=== PATIENT | female | born 2000 | race Two or more races ===

== ENCOUNTER 2025-05-10 04:42 | Emergency (ER) | payer BC, SELFPAY ==
[2025-05-10 04:43] VITALS: BMI 29.2
[2025-05-10 04:49] VITALS: BP 111/77; PULSE 95; RESP 18; TEMP 36.6; O2SAT 100
--- NOTE | 2025-05-10 05:04 | XR_ITS ---
Examination: Complete OB ultrasound, less than 14 weeks, transabdominal Date and time of exam: May 10, 2025, 0522 hrs. Indications: Nausea vomiting and vaginal bleeding today. Technique: Obstetrical ultrasound images less than 14 weeks performed via transabdominal imaging Findings: A normal shaped single intrauterine gestation is present in the uterus. CRL 3.11 cm corresponds to 10 week 0 day gestational age Cardiac motion 169 BPM. Right ovary 3.6 cm arterial flow, 21 mm corpus luteum cyst. Left ovary 3.0 cm arterial flow Ultrasonographic survey of visible and placental structures unremarkable. Amniotic fluid volume appears appropriate for this estimated gestational age. Impression: Viable intrauterine gestation 10 weeks 0 days.
--- NOTE | 2025-05-10 05:04 | PD.EDRME ---
Rapid Medical Screening Exam RME Arrival date/time: 05/10/25 04:42 This is a case of 24-year-old female with no medical history came in in the emergency room due to vomiting and nausea for 3 days patient is 10 weeks 1 para 0 patient denies any abdominal pain or vaginal bleeding Chief Complaint: Nausea/Vomiting/Diarrhea Time Seen by Provider: 05/10/25 05:03 Vital signs: Vital Signs Temperature 98 F 05/10/25 04:49 Pulse Rate 95 05/10/25 04:49 Respiratory Rate 18 05/10/25 04:49 Blood Pressure 111/77 05/10/25 04:49 Pulse Oximetry (%) 100 05/10/25 04:49 Oxygen Delivery Method Room Air 05/10/25 04:49
[2025-05-10 05:14] LABS: Collection Type, Urine Voided
[2025-05-10 05:22] LABS: Bacteria,Urine Rare; Bilirubin,Urine 1+ (Negative); Blood,Urine Trace (Negative); Clarity,Urine Turbid (Clear/Hazy); Color,Urine Drk-Yellow (Lt Yel-Yel); Glucose, Urine Negative (Negative); Ketones,Urine 4+ (Negative); Leukocyte Esterase,Urine Positive (Negative); Nitrite,Urine Negative (Negative); PH,Urine 6.0 (5.0-7.0); Protein,Urine 1+ (Neg - Trace); RBC,Urine 2 /hpf (0-3); Specific Gravity,Urine 1.028 (1.001-1.035); Squamous Epithelial Cell,Urine 17 /hpf (0-5); Urobilinogen,Urine 4.0 mg/dL (0.0-1.0); WBC,Urine 7 /hpf (0-5)
[2025-05-10 06:01] LABS: Basophils # (Auto) 0.0 Thou/mm3 (0.0-0.2); Basophils % (Auto) 0 % (0-2.5); Eosinophils # (Auto) 0.0 Thou/mm3 (0.0-0.5); Eosinophils % (Auto) 0 % (0-10); Hematocrit 40.5 % (36.0-46.0); Hemoglobin 14.4 g/dL (12.0-16.0); Immature Granulocytes Auto 0.03 Thou/mm3 (0.00-0.00); Lymphocytes # (Auto) 1.6 Thou/mm3 (1.0-4.8); Lymphocytes % (Auto) 14 % (10-50); Mean Corpuscular HGB Conc 35.6 g/dl (31.0-37.0); Mean Corpuscular Hemoglobin 30.0 pg (25.0-35.0); Mean Corpuscular Volume 84 fL (80-100); Monocytes # (Auto) 0.5 Thou/mm3 (0.0-0.8); Monocytes % (Auto) 5 % (0-12); Neutrophils # (Auto) 8.9 Thou/mm3 (1.8-7.7); Neutrophils % (Auto) 80 % (37-80); Nucleated Red Blood Cell # 0.00 Thou/mm3 (0.00-0.00); Nucleated Red Blood Cell % 0 /100 WBC (0); Platelet Count 346 Thou/mm3 (140-440); RDW Standard Deviation 39.3 fL (36.4-46.3); Red Blood Count 4.80 Miln/mm3 (4.00-5.20); White Blood Count 11.1 Thou/mm3 (3.6-11.0)
--- NOTE | 2025-05-10 06:02 | PRELIM_ITS ---
Obstetric ultrasound (transabdominal ) with Doppler and wave Doppler spectral analysis. May 10, 2025 0522 hours Clinical history: Vaginal bleeding. Technique: Real-time ultrasound was performed using Duplex scanning including arterial inflow, venous outflow, color and spectral Doppler analysis of both ovaries. Comparison: No prior study is available for comparison. Findings: There is an intrauterine gestation with a single live fetus of mean gestational age 10 weeks and 0 days (CRL= 3.1 cm). cardiac activity is present at heart rate of 169 beats per minute. The uterus measures 10.6 x 6.5 x 8.7 cm. The right ovary measures 3.6 x 3.0 x 2.0 cm, mildly complex cystic lesion measures 2.1 x 1.6 x 2.1 cm. The left ovary measures 3.0 x 1.3 x 1.9 cm and is unremarkable. Normal blood flow in the bilateral ovaries with normal wave Doppler spectral analysis. There is no free fluid in the pelvis. Impression: Intrauterine gestation with a single live fetus of mean gestational age 10 weeks and 0 days. No evidence of ovarian torsion. Mildly complex right ovarian cystic lesion. Consider follow-up. Report Electronically Signed By: Domingo Agrawal 05/10/2025 6:01:46 AM [EST]
--- NOTE | 2025-05-10 06:38 | EDNOTE_ITS ---
Nausea/Vomit./Diarrhea-RME/HPI General Chief complaint: Nausea/Vomiting/Diarrhea Stated complaint: 10 wks preg nv Time Seen by Provider: 05/10/25 05:03 Arrival date/time: 05/10/25 04:42 RME / HPI RME / HPI Narrative: 05/10/25 04:42 This is a case of 24-year-old female with no medical history came in in the emergency room due to vomiting and nausea for 3 days patient is 10 weeks 1 para 0 patient denies any abdominal pain or vaginal bleeding DR. GARCIA MAIN ED EVALUATION: 24-year-old female, 10 weeks , presents to the Emergency Department with complaint of persistent nausea and vomiting today, unable to tolerate oral intake. Patient reports she typically experiences morning sickness, but today symptoms are more severe. Associated diffuse abdominal pain, mainly lower abdomen. No dysuria, no foul-smelling urine, no fevers or chills. Had a small amount of yellowish vaginal discharge with no itching, burning, or foul smell. Related Data Home Medications ?Medication ?Instructions ?Recorded ?Confirmed No Known Home Medications 10/04/1708/28 Allergies Allergy/AdvReac Type Severity Reaction Status Date / Time No Known Allergies Allergy Verified 05/10/25 04:46 Review of Systems Review of Systems Systems Reviewed: All systems reviewed, normal except as documented Past Medical History Social History SMOKING STATUS: Never smoker SUBSTANCE USE: does not use ALCOHOL: Never ED Exam Narrative Physical exam: GENERAL APPEARANCE: alert and oriented x 4, well-developed, well-nourished, no acute distress VITALS: All vitals were reviewed and the pulse ox is 100% on room air, which is normal according to my interpretation. HEENT: Normocephalic, atraumatic; pupils equal, round, reactive to light; EOMI; mucous membranes pink, dry lips; oropharynx clear NECK: Supple LUNGS: CTABL; no wheezes, no rales, no rhonchi HEART: Regular rate, regular rhythm; normal S1, S2; no murmurs ABDOMEN: mild abdominal distention; normal BS; soft, no tenderness, no guarding, no rebound; no masses, no organomegaly, no hernia BACK: no CVA tenderness EXTREMITIES: atraumatic; no edema NEUROLOGIC: awake; alert and oriented x4; cranial nerves II-XII grossly intact; no focal sensory or motor deficits PSYCHIATRIC: appropriate mood and affect SKIN: warm, dry, normal color; no rashes Course Quality Measures none Orders Category Date Time Status US OB <= 14 weeks fetus Stat Exams 05/10/25 05:04 Completed ABO/RH Type Stat Lab 05/10/25 05:50 Completed Beta HCG,Quantitative Stat Lab 05/10/25 05:50 Completed CBC Stat Lab 05/10/25 05:50 Completed CMP [Comprehensive Metabolic Panel] Stat Lab 05/10/25 05:50 Completed Urinalysis Stat Lab 05/10/25 05:11 Completed Urine Culture Stat Lab 05/10/25 06:20 Ordered Ondansetron Inj [Zofran Inj] Med 05/10/25 05:04 Discontinued 4 mg IVP X1 ONE Sodium Chloride 0.9% 1000 ml [Ns] 1,000 ml Med 05/10/25 05:04 Discontinued IV 999 mls/hr Sodium Chloride 0.9% 1000 ml [Ns] 1,000 ml Med 05/10/25 06:36 Discontinued IV 999 mls/hr Vital Signs Vital signs: Vital Signs Temperature 98 F 05/10/25 04:49 Pulse Rate 95 05/10/25 04:49 Respiratory Rate 18 05/10/25 04:49 Blood Pressure 111/77 05/10/25 04:49 Pulse Oximetry (%) 100 05/10/25 04:49 Oxygen Delivery Method Room Air 05/10/25 04:49 Nausea/Vomiting/Diarrhea MDM Narrative MDM Narrative:: 24-year-old female, 10 weeks , with chief complaint of persistent nausea and vomiting, unable to tolerate oral intake, associated with diffuse lower abdominal pain. Exam notable for mild abdominal distension and dry mucous membranes, concerning for dehydration. Labs including CBC, CMP, urinalysis, urine culture, and beta-hCG will be obtained. Ultrasound will also be ordered. IV fluids and zofran will be given. 0846: Reassessment at this time shows the patient feeling better and able to keep some water now. She states she is taking her vitamins and following with her HEAD OF PARTNER DEVELOPMENT. Plan to discharge the patient. Differential diagnosis: Likely hyperemesis gravidarum, UTI, pyelonephritis, gastroenteritis, early appendicitis, and less likely threatened miscarriage. Most likely diagnosis given after review of the tests above: Vomiting during pre gnancy I, Angie Fontenot am scribing for and in the presence of Dr. Garcia. Patient data External records reviewed:: [facility] previous records Clinical information provided by:: patient and spouse Social determinants that could affect healthcare access:: none Patient has the following chronic illnesses:: Denies any PMHx, surgeries, daily medications, or known allergies. 10 weeks . How is presenting disease/condition affected by chronic disease/condition?: no chronic disease Evaluation data The following diagnostics were reviewed and interpreted by me:: lab results and radiology exam(s) Lab and/or radiology exams considered but not ordered:: none Interpretation Summary: See MDM narrative above. RADIOLOGY Procedure(s): US OB <= 14 weeks fetus Accession Number(s): [id number] cc: Fili (LANNY),Inga TSE; Jeffry Marie MD; Karon Schultz~ Examination: Complete OB ultrasound, less than 14 weeks, transabdominal Date and time of exam: May 10, 2025, 0522 hrs. Indications: Nausea vomiting and vaginal bleeding today. Technique: Obstetrical ultrasound images less than 14 weeks performed via transabdominal imaging Findings: A normal shaped single intrauterine gestation is present in the uterus. CRL 3.11 cm corresponds to 10 week 0 day gestational age Cardiac motion 169 BPM. Right ovary 3.6 cm arterial flow, 21 mm corpus luteum cyst. Left ovary 3.0 cm arterial flow Ultrasonographic survey of visible and placental structures unremarkable. Amniotic fluid volume appears appropriate for this estimated gestational age. Impression: Viable intrauterine gestation 10 weeks 0 days. Dictated By: Jeffry Marie MD Medications / Prescriptions Medications / Prescriptions considered but not ordered:: none Medication administrations:: Medication Administration History Discontinued Medications Sodium Chloride (Ns) 1,000 mls @ 999 mls/hr IV .Q1H1M ONE Stop: 05/10/25 06:04 Last Infusion: 05/10/25 08:23 Dose: Infused Documented By: Admin: 05/10/25 06:44 Dose: 999 mls/hr Documented By: CCT Sodium Chloride (Ns) 1,000 mls @ 999 mls/hr IV .Q1H1M ONE Stop: 05/10/25 07:36 Last Admin: 05/10/25 06:46 Dose: 999 mls/hr Documented By: CCT Ondansetron HCl (Ondansetron Inj 2 Mg/Ml Inj 2 Ml) 4 mg IVP X1 ONE; Protocol Stop: 05/10/25 05:05 Last Admin: 05/10/25 06:43 Dose: 4 mg Documented By: CCT see above Consultations Consultation(s) initiated? (list below): No Diagnosis Nausea Differential Diagnosis: gastroenteritis, dehydration and other (hyperemesis gravidarum, UTI, pyelonephritis, early appendicitis, and less likely threatened miscarriage.) Most likely diagnosis given after review of the tests above:: Vomiting during Admission Indicated Admission indicated?: not indicated Admission Request Was there a request for admission?: No Disposition Plan Disposition Plan: Discharge Discharge Attestation Discharge Attestation: The patient and all family members were given an opportunity to ask questions and understood the discharge instructions. Discharge instructions specifically effects, indications for sooner follow up or return to the emergency department, and the expected course of current diagnosis. Patient condition: Stable Discharge Plan Plan Patient Disposition: HOME (Self Care) Prescriptions/Referrals Prescriptions/Med Rec: No Action No Known Home Medications Referrals: Inga Penn PA-C ([facility]) [Primary Care Provider] - In 1 week Problem List Clinical Impression: Vomiting during Patient/Caregiver Discharge Instructions Education Materials: First Trimester, ED Vomiting (Adult) Additional Instructions: May try vitamin B6, Unisom (doxylamine), and/or lauryn over the counter for nausea and vomiting during Print Language: Pashto Stand Alone Forms: [employer] Award Info., Patient Portal Info Letter
[2025-05-10] MEDS: ONDANSETRON INJ 2 MG/ML INJ 2 ML 4 MG IVP (06:43)
[2025-05-10 06:44] LABS: Alanine Aminotransferase 225 U/L (10-49); Albumin, Serum 4.5 gm/dL (3.5-5.0); Albumin/Globulin Ratio 1.7 (1.2-2.2); Alkaline Phosphatase 89 U/L (46-116); Anion Gap 12 (7-16); Aspartate Amino Transferase 182 U/L (0-34); BUN/Creatinine Ratio 8 Ratio (12-20); Bilirubin,Total 1.2 mg/dL (0.3-1.2); Blood Urea Nitrogen 5 mg/dL (9-23); Calcium 9.8 mg/dL (8.3-10.6); Calcium (Corrected) 9.8 mg/dL (8.5-10.1); Carbon Dioxide 23.7 mMol/L (20.0-31.0); Chloride 101 mMol/L (98-107); Creatinine (Component) 0.6 mg/dL (0.6-1.3); Estimated Creatinine Clearance 123.4 mL/min (>60); Globulin 2.7 gm/dL (2.3-3.5); Glucose 93 mg/dL (74-106); Osmolality,Calculated 271 (275-295); Potassium 3.7 mMol/L (3.4-5.1); Sodium 137 mMol/L (136-145); Total Protein 7.2 gm/dL (5.7-8.2); eGFR > 60 See Note
[2025-05-10] MEDS: SODIUM CHLORIDE 0.9% 1000 ML 1,000 ML 999 ML IV ×2 (06:44→06:46)
[2025-05-10 07:57] LABS: Beta HCG,Quantitative 164920 mIU/mL (<5.0)
[2025-05-10 08:01] VITALS: BP 108/59; PULSE 90; RESP 18; TEMP 36.9; O2SAT 100
== END 2025-05-10 09:43 | disposition home or self-care (01) ==
PROVIDERS: Nurse Practitioner Family; Emergency Provider Emergency Medicine; PCP Physician Assistant
DX: O21.9 Vomiting of pregnancy, unspecified (principal); Z3A.10 10 weeks gestation of pregnancy
CPT/HCPCS: 36415; 76801; 80053; 81001; 84702; 85025; 86900; 86901; 87086; 96361; 96374; 99283; J2405; J7030

== ENCOUNTER 2025-06-09 14:35 | Emergency (ER) | payer BC, SELFPAY ==
--- NOTE | 2025-06-09 14:48 | XR_ITS ---
Examination: Pelvic ultrasound, transabdominal, complete Technique: Transabdominal ultrasound of the pelvis performed using grayscale imaging Date and time of exam: June 09, 2025, 1456 hours INDICATIONS: Pelvic pain today FINDINGS: Uterus 15.7 cm CRL 9.1 cm corresponds to 15-week 0-day gestational age Cardiac motion 153 bpm Right ovary 5.8 cm arterial flow Left ovary 3.7 cm arterial flow IMPRESSION: Viable intrauterine gestation 15 weeks 0 days
[2025-06-09 14:49] VITALS: BP 130/89; PULSE 87; RESP 16; TEMP 37.1; O2SAT 99; BMI 27.6
--- NOTE | 2025-06-09 14:49 | PD.EDADULT ---
ED General E/[facility] General Chief complaint: Vaginal Bleeding Stated complaint: VAGINAL BLEEDING; PREG 14WKS Time Seen by Provider: 06/09/25 14:41 Arrival date/time: 06/09/25 14:35 RME / HPI RME / HPI narrative: Yudith is 24 y/o female who is currently 14 weeks who comes in for evaluation of vaginal bleeding, onset this morning after using the restroom today. Patient reports that she has never had this bleeding before and this is her first . She has never had a miscarriage before. She says that she was in the bathroom and and was using it had noticed blood come out. She described it as 1 big clot. This has never happened to her before. Her RUBBER GOODS INSPECTOR is Dr Uribe and she is due for follow-up. She has been taking prenatals as prescribed. Denies any dysuria, fever, chills, chest pain, shortness of breath, weakness. She does not take any blood thinners. She is not smoke, drink or use IV or oral drugs. She denies any recent travel, says no one around her is feeling this. 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 Related Data Home Medications ?Medication ?Instructions ?Recorded ?Confirmed No Known Home Medications 10/04/17 09/15/21 Allergies Allergy/AdvReac Type Severity Reaction Status Date / Time No Known Allergies Allergy Verified 06/09/25 14:37 Review of Systems Review of Systems Narrative Review of Systems: 12 point ROS reviewed and is otherwise negative unless stated directly in the HPI ED Exam Narrative Physical exam: General: AAOx3, NAD, HEENT: Moist mucous membranes, conjunctiva clear, EOMI, PERRLA, Cardiovascular: S1, S2, radial pulses +2 bilat, RRR Pulmonary: CTAB bilat no cough, no wheezing GI: No tenderness to light or deep palpitation, no guarding, rigidity, rebound tenderness or distension : Speculum exam shows trace blood from cervical os, however it is closed Extremities: No presence of trace or pitting edema in lower extremities bilaterally, dorsalis pedis pulses +2 bilaterally Neuro: AAOx3, no focal motor or sensory deficits in the UE or LE bilat Psych: Good judgement, thought and behavior Course Quality Measures none Orders Category Date Time Status US OB <= 14 weeks fetus Stat Exams 06/09/25 14:48 Completed ABO/RH Type Stat Lab 06/09/25 16:24 Ordered Beta HCG,Quantitative Stat Lab 06/09/25 15:31 Results CBC Stat Lab 06/09/25 15:31 Completed CMP [Comprehensive Metabolic Panel] Stat Lab 06/09/25 15:31 Results HCG,Qualitative Serum Stat Lab 06/09/25 15:31 Results UA, C/S IF [Urinalysis, C/S if Indicated] Stat Lab 06/09/25 16:45 Completed Urine Culture Stat Lab 06/09/25 16:45 Received Vital Signs Vital signs: Vital Signs Temperature 98.8 F 06/09/25 14:49 Pulse Rate 87 06/09/25 14:49 Respiratory Rate 16 06/09/25 14:49 Blood Pressure 130/89 H 06/09/25 14:49 Pulse Oximetry (%) 99 06/09/25 14:49 Oxygen Delivery Method Room Air 06/09/25 14:49 Discharge Plan Plan Patient Disposition: HOME (Self Care) Prescriptions/Referrals Prescriptions/Med Rec: No Action No Known Home Medications Referrals: Inga Penn PA-C ([facility]) [Primary Care Provider] - In 1 week Problem List Clinical Impression: Threatened , Vaginal bleeding Patient/Caregiver Discharge Instructions Education Materials: ED Possible Miscarriage ... Additional Instructions: Discharge instructions Follow-up with your PCP within 1 week Take your medicines as prescribed Continue with your prenatals vitamins You will need to follow up with your OB-PRECISION AGRICULTURE SPECIALIST, Dr. Uribe. Speak with him in regards to our findings and also for further workup. Follow up with your OBGYN/PCP in regards to your Rho status and beta Hcg Quant blood test Return to ED if your symptoms worsen or return Print Language: Azeri Stand Alone Forms: [employer] Award Info., Patient Portal Info Letter MDM Narrative MDM hospital course (for use when minimal MDM required): 1458: Ordered pelvic US, basic labs, serum Hcg. May do /pelvic exam based off further findings of US as pt says she is not bleeding currently. 1630: Pelvic US shows 15 wek gestation and cardiac beat. Speculum exam shows closed cervical os, however some trace bleeding. Will follow up on urine hcg and Rho status. 1748: Pt medically cleared for discharge at this time. She will need strict follow up with her OB-PRECISION AGRICULTURE SPECIALIST, Dr. Uribe. She will need to follow up with her urine hcg and Rho status outpatient
[2025-06-09 16:26] LABS: Basophils # (Auto) 0.0 Thou/mm3 (0.0-0.2); Basophils % (Auto) 0 % (0-2.5); Eosinophils # (Auto) 0.0 Thou/mm3 (0.0-0.5); Eosinophils % (Auto) 0 % (0-10); Hematocrit 36.0 % (36.0-46.0); Hemoglobin 12.5 g/dL (12.0-16.0); Immature Granulocytes Auto 0.07 Thou/mm3 (0.00-0.00); Lymphocytes # (Auto) 1.8 Thou/mm3 (1.0-4.8); Lymphocytes % (Auto) 12 % (10-50); Mean Corpuscular HGB Conc 34.7 g/dl (31.0-37.0); Mean Corpuscular Hemoglobin 29.7 pg (25.0-35.0); Mean Corpuscular Volume 86 fL (80-100); Monocytes # (Auto) 0.6 Thou/mm3 (0.0-0.8); Monocytes % (Auto) 4 % (0-12); Neutrophils # (Auto) 12.8 Thou/mm3 (1.8-7.7); Neutrophils % (Auto) 84 % (37-80); Nucleated Red Blood Cell # 0.00 Thou/mm3 (0.00-0.00); Nucleated Red Blood Cell % 0 /100 WBC (0); Platelet Count 250 Thou/mm3 (140-440); RDW Standard Deviation 40.0 fL (36.4-46.3); Red Blood Count 4.21 Miln/mm3 (4.00-5.20); White Blood Count 15.2 Thou/mm3 (3.6-11.0)
[2025-06-09 16:31] LABS: HCG,Qualitative Serum Positive
[2025-06-09 16:39] LABS: Alanine Aminotransferase 12 U/L (10-49); Albumin, Serum 3.8 gm/dL (3.5-5.0); Albumin/Globulin Ratio 1.5 (1.2-2.2); Alkaline Phosphatase 83 U/L (46-116); Anion Gap 10 (7-16); Aspartate Amino Transferase 14 U/L (0-34); BUN/Creatinine Ratio 10 Ratio (12-20); Bilirubin,Total 0.2 mg/dL (0.3-1.2); Blood Urea Nitrogen < 5 mg/dL (9-23); Calcium 9.0 mg/dL (8.3-10.6); Calcium (Corrected) 9.2 mg/dL (8.5-10.1); Carbon Dioxide 24.1 mMol/L (20.0-31.0); Chloride 104 mMol/L (98-107); Creatinine (Component) 0.5 mg/dL (0.6-1.3); Estimated Creatinine Clearance 162.2 mL/min (>60); Globulin 2.5 gm/dL (2.3-3.5); Glucose 81 mg/dL (74-106); Osmolality,Calculated 271 (275-295); Potassium 3.6 mMol/L (3.4-5.1); Sodium 138 mMol/L (136-145); Total Protein 6.3 gm/dL (5.7-8.2); eGFR > 60 See Note
[2025-06-09 16:55] LABS: Collection Type, Urine Clean Catch
[2025-06-09 17:12] LABS: Bacteria,Urine Rare; Bilirubin,Urine Negative (Negative); Blood,Urine 2+ (Negative); Clarity,Urine Clear (Clear/Hazy); Color,Urine Lt-Yellow (Lt Yel-Yel); Glucose, Urine Negative (Negative); Hyaline Casts,Urine < 1 /hpf (0-1); Ketones,Urine Negative (Negative); Leukocyte Esterase,Urine Positive (Negative); Nitrite,Urine Negative (Negative); PH,Urine 6.5 (5.0-7.0); Protein,Urine Negative (Neg - Trace); RBC,Urine 1 /hpf (0-3); Specific Gravity,Urine 1.010 (1.001-1.035); Squamous Epithelial Cell,Urine 2 /hpf (0-5); Urobilinogen,Urine Negative mg/dL (0.0-1.0); WBC,Urine 11 /hpf (0-5)
[2025-06-09 17:24] LABS: Culture Indicated,Urine Yes
== END 2025-06-09 18:15 | disposition home or self-care (01) ==
PROVIDERS: PCP Physician Assistant
DX: O20.0 Threatened abortion (principal); Z3A.14 14 weeks gestation of pregnancy
CPT/HCPCS: 36415; 76801; 80053; 81001; 84702; 84703; 85025; 86900; 86901; 87086; 99283

== ENCOUNTER 2025-08-08 18:11 | Emergency (ER) | payer BC, SELFPAY ==
[2025-08-08 18:12] VITALS: BMI 31.2
[2025-08-08 18:42] VITALS: BP 143/90; PULSE 68; RESP 18; TEMP 37; O2SAT 98
--- NOTE | 2025-08-08 18:46 | XR_ITS ---
Examination: Pelvic ultrasound, transabdominal, complete Technique: Transabdominal ultrasound of the pelvis performed using grayscale imaging Date and time of exam: August 08, 2025, 10 0 6:00 p.m. INDICATIONS: Abdominal pain nausea today FINDINGS: Uterus 7.3 cm endometrial stripe 0.1 cm No uterine mass or intrauterine gestation Right ovary obscured by bowel gas Left ovary 3.4 cm arterial flow IMPRESSION: No uterine mass or intrauterine gestation
--- NOTE | 2025-08-08 18:47 | PD.EDABDPN ---
ED Abdominal Pain RME/HPI General Chief Complaint: Abdominal Pain Stated complaint: I THINK I HAVE SEVERE UTI; LLQ ABD PAIN X2 DAYS Time seen by provider: 08/08/25 18:15 Arrival date/time: 08/08/25 18:11 24-year-old female patient who came in for evaluation regarding urinary frequency. Has been ongoing for the last few days associated with pelvic pain, described as dull ache severity moderate. Patient also noticed abnormal vaginal discharge and fishlike odor. Patient denies any . Denies any fever but complain of on and off nausea and vomiting. Denies any dysuria. No medication was taken prior to ER visit. Related Data Previous Rx's ?Medication ?Instructions ?Recorded ferrous sulfate 325 mg (65 mg 325 mg PO BID #60 tabs 06/11/25 iron) tablet,delayed release hydrocodone 2.5 mg-acetaminophen 1 tab PO Q6H PRN pain #20 tabs 06/11/25 325 mg tablet ibuprofen 600 mg tablet 600 mg PO Q6H PRN pain #30 tabs 06/11/25 famotidine 40 mg tablet (Pepcid) 40 mg PO BID #20 tabs 08/08/25 metronidazole 500 mg tablet 500 mg PO BID 7 days #14 tabs 08/08/25 ondansetron HCl 4 mg tablet 4 mg PO Q8H PRN nausea and 08/08/25 vomiting 5 days #20 tabs Allergies Allergy/AdvReac Type Severity Reaction Status Date / Time No Known Allergies Allergy Verified 08/08/25 18:15 Review of Systems Review of Systems Narrative Review of Systems: Review of system reviewed and within normal limits except mentioned in HPI ED Exam Narrative Physical exam: VITAL SIGNS: Reviewed. GENERAL APPEARANCE: Alert and interactive, follows commands, no acute distress, HEAD AND FACE: Non-traumatic. ENT: PERRL, pink conjunctivitis, eyelid no trauma, Mucous membrane moist. NECK: Supple, nontender, no nuchal rigidity. CHEST: No tenderness, no crepitus, no paradoxical movement, no retractions. LUNGS: Clear, well ventilated, symmetric, no rales, no wheezing, no ronchi, no stridor, good breath sounds bilaterally. HEART: Regular rate, regular rhythm, no murmur, no gallops. ABDOMEN: Soft, positive bowel sounds, nondistended, no guarding, lower pelvic tenderness, no rebound, no masses, RECTAL: Deferred. GENITAL: Deferred. NEUROLOGICAL: Gross motor function intact sensory function intact, Appropriate for age. MUSCULOSKELETAL: low back nontender, full range of motion. EXTREMITIES: Nontender, full range of motion. SKIN: Color pink, dry, no rash, no lacerations, no abrasions, no contusions. LYMPHATICS: Deferred. Course Quality Measures none Orders Category Date Time Status US pelvic complete Stat Exams 08/08/25 18:46 Completed Bacterial Vaginal Panel Stat Lab 08/08/25 18:56 Received CBC Auto Diff Post-Transfusion Stat Lab 08/08/25 19:01 Completed CMP [Comprehensive Metabolic Panel] Stat Lab 08/08/25 19:01 Completed HCG Qualitative,Urine Stat Lab 08/08/25 18:56 Completed UA, C/S IF [Urinalysis, C/S if Indicated] Stat Lab 08/08/25 18:56 Completed Wet Prep Stat Lab 08/08/25 18:56 Received Acetaminophen Tab [Tylenol ES Tab] Med 08/08/25 18:47 Discontinued 1,000 mg PO X1 ONE Famotidine [Pepcid] Med 08/08/25 22:48 Once 40 mg PO X1 ONE Metoclopramide [Reglan] Med 08/08/25 22:48 Once 10 mg PO X1 ONE Ondansetron Odt [Zofran Odt] Med 08/08/25 18:47 Discontinued 4 mg PO X1 ONE metroNIDAZOLE [Flagyl] Med 08/08/25 22:48 Once 500 mg PO X1 ONE Vital Signs Vital signs: Vital Signs Temperature 98.6 F 08/08/25 18:42 Pulse Rate 68 08/08/25 18:42 Respiratory Rate 18 08/08/25 18:42 Blood Pressure 143/90 H 08/08/25 18:42 Pulse Oximetry (%) 98 08/08/25 18:42 Oxygen Delivery Method Room Air 08/08/25 18:42 Abdominal Pain MDM MDM Narrative MDM Narrative:: 08/08/25 18:11 24-year-old female patient who came in for evaluation regarding urinary frequency. Has been ongoing for the last few days associated with pelvic pain, described as dull ache severity moderate. Patient also noticed abnormal vaginal discharge and fishlike odor. Patient denies any . Denies any fever but complain of on and off nausea and vomiting. Denies any dysuria. No medication was taken prior to ER visit. Ultrasound of the pelvis came back unremarkable. See patient CBC also came back with no leukocytosis no anemia, CMP unremarkable. Urinalysis no UTI. Bacterial vaginal panel will be back tomorrow. However we decided to start the patient on treatment for bacterial vaginosis due to clinical diagnosis of possible bacterial vaginosis secondary to fishlike odor discharges. Patient was also advised to see her TERADATA DEVELOPER this coming Sunday. She is stable for charged home Patient data External records reviewed:: None Clinical information provided by:: patient Social determinants that could affect healthcare access:: none Patient has the following chronic illnesses:: None How is presenting disease/condition affected by chronic disease/condition?: no chronic disease Evaluation data The following diagnostics were reviewed and interpreted by me:: lab results and radiology exam(s) Lab and/or radiology exams considered but not ordered:: None Interpretation Summary: See above Medications / Prescriptions Medications or Prescriptions considered but not ordered:: None Medication administrations:: Medication Administration History Famotidine (Famotidine 20 Mg Tablet) 40 mg PO X1 ONE Stop: 08/08/25 22:49 Metoclopramide HCl (Metoclopramide 5 Mg Tablet) 10 mg PO X1 ONE Stop: 08/08/25 22:49 Metronidazole (Metronidazole 250 Mg Tablet) 500 mg PO X1 ONE Stop: 08/08/25 22:49 Discontinued Medications Acetaminophen (Acetaminophen 500 Mg Tablet) 1,000 mg PO X1 ONE Stop: 08/08/25 18:48 Last Admin: 08/08/25 19:35 Dose: 1,000 mg Documented By: BD Ondansetron HCl (Ondansetron Odt 4 Mg Tabrap) 4 mg PO X1 ONE; Protocol Stop: 08/08/25 18:48 Last Admin: 08/08/25 19:35 Dose: 4 mg Documented By: BD Stable Consultations Consultation(s) initiated? (list below): No Diagnosis Differential diagnosis abdominal pain: constipation and other (UTI, bacterial vaginosis, pelvic pain) Most likely diagnosis given after review of the tests above:: Pelvic pain, bacterial vaginosis Admission Indicated Admission indicated?: not indicated Admission Request Was there a request for admission?: No Disposition Plan Disposition Plan: Discharge Discharge Attestation Discharge Attestation: The patient and all family members were given an opportunity to ask questions and understood the discharge instructions. Discharge instructions specifically effects, indications for sooner follow up or return to the emergency department, and the expected course of current diagnosis. Patient condition: Stable Discharge Plan Plan Patient Disposition: HOME (Self Care) Discharge Disposition comment: Stable Prescriptions/Referrals Prescriptions/Med Rec: New metronidazole 500 mg tablet 500 mg PO BID 7 Days Qty: 14 0RF famotidine [Pepcid] 40 mg tablet 40 mg PO BID Qty: 20 0RF ondansetron HCl 4 mg tablet 4 mg PO Q8H PRN (Reason: nausea and vomiting) 5 Days Qty: 20 0RF No Action hydrocodone-acetaminophen 2.5-325 mg tablet 1 tab PO Q6H MDD 4 PRN (Reason: pain) Qty: 20 0RF ibuprofen 600 mg tablet 600 mg PO Q6H PRN (Reason: pain) Qty: 30 0RF ferrous sulfate 325 mg (65 mg iron) tablet,delayed release (DR/EC) 325 mg PO BID Qty: 60 1RF Referrals: No Primary/Family,Physician [Primary Care Provider] - In 1 week Problem List Clinical Impression: Bacterial vaginosis, Pelvic pain Patient/Caregiver Discharge Instructions Discharge Activity: activity as tolerated Education Materials: Bacterial Vaginosis Additional Instructions: Thank you for the opportunity for serving you today. You are stable for discharged . You are advised to: Follow-up with your TERADATA DEVELOPER in 1 to 2 days Return to ED for worsening of symptoms Increase oral fluids Take medication as prescribed Print Language: Chilean Stand Alone Forms: [employer] Award Info., Patient Portal Info Letter JIMENA/MALIK Supervising Physician JIMENA/MALIK Supervising Physician: MD Macarena
[2025-08-08 19:06] LABS: Collection Type, Urine Clean Catch
[2025-08-08 19:11] LABS: Bilirubin,Urine Negative (Negative); Blood,Urine Negative (Negative); Clarity,Urine Turbid (Clear/Hazy); Color,Urine Yellow (Lt Yel-Yel); Culture Indicated,Urine Not Indicated; Glucose, Urine Negative (Negative); Ketones,Urine 3+ (Negative); Leukocyte Esterase,Urine Negative (Negative); Nitrite,Urine Negative (Negative); PH,Urine 6.0 (5.0-7.0); Protein,Urine 1+ (Neg - Trace); RBC,Urine 2 /hpf (0-3); Specific Gravity,Urine 1.031 (1.001-1.035); Squamous Epithelial Cell,Urine 4 /hpf (0-5); Urobilinogen,Urine Negative mg/dL (0.0-1.0); WBC,Urine 2 /hpf (0-5)
[2025-08-08 19:22] LABS: Basophils # (Auto) 0.1 Thou/mm3 (0.0-0.2); Basophils % (Auto) 1 % (0-2.5); Eosinophils # (Auto) 0.0 Thou/mm3 (0.0-0.5); Eosinophils % (Auto) 0 % (0-10); Hematocrit 40.1 % (36.0-46.0); Hemoglobin 12.9 g/dL (12.0-16.0); Immature Granulocytes Auto 0.03 Thou/mm3 (0.00-0.00); Lymphocytes # (Auto) 1.1 Thou/mm3 (1.0-4.8); Lymphocytes % (Auto) 12 % (10-50); Mean Corpuscular HGB Conc 32.2 g/dl (31.0-37.0); Mean Corpuscular Hemoglobin 26.8 pg (25.0-35.0); Mean Corpuscular Volume 83 fL (80-100); Monocytes # (Auto) 0.4 Thou/mm3 (0.0-0.8); Monocytes % (Auto) 5 % (0-12); Neutrophils # (Auto) 7.0 Thou/mm3 (1.8-7.7); Neutrophils % (Auto) 82 % (37-80); Nucleated Red Blood Cell # 0.00 Thou/mm3 (0.00-0.00); Nucleated Red Blood Cell % 0 /100 WBC (0); Platelet Count 398 Thou/mm3 (140-440); RDW Standard Deviation 38.9 fL (36.4-46.3); Red Blood Count 4.82 Miln/mm3 (4.00-5.20); White Blood Count 8.5 Thou/mm3 (3.6-11.0)
[2025-08-08 19:27] LABS: HCG Qualitative,Urine Negative
[2025-08-08] MEDS: ONDANSETRON ODT 4 MG TABRAP PO (19:35)
[2025-08-08] MEDS: ACETAMINOPHEN 500 MG TABLET 1000 MG PO (19:35)
[2025-08-08 19:39] LABS: Alanine Aminotransferase 19 U/L (10-49); Albumin, Serum 5.4 gm/dL (3.5-5.0); Albumin/Globulin Ratio 1.6 (1.2-2.2); Alkaline Phosphatase 99 U/L (46-116); Anion Gap 14 (7-16); Aspartate Amino Transferase < 10 U/L (0-34); BUN/Creatinine Ratio 9 Ratio (12-20); Bilirubin,Total 0.3 mg/dL (0.3-1.2); Blood Urea Nitrogen 8 mg/dL (9-23); Calcium 10.2 mg/dL (8.3-10.6); Calcium (Corrected) 10.2 mg/dL (8.5-10.1); Carbon Dioxide 24.0 mMol/L (20.0-31.0); Chloride 104 mMol/L (98-107); Creatinine (Component) 0.9 mg/dL (0.6-1.3); Estimated Creatinine Clearance 85.0 mL/min (>60); Globulin 3.3 gm/dL (2.3-3.5); Glucose 114 mg/dL (74-106); Osmolality,Calculated 282 (275-295); Potassium 3.5 mMol/L (3.4-5.1); Sodium 142 mMol/L (136-145); Total Protein 8.7 gm/dL (5.7-8.2); eGFR > 60 See Note
[2025-08-08] MEDS: RINGERS LACTATED 1000 ML 1,000 ML 999 ML IV (23:51)
[2025-08-08] MEDS: METOCLOPRAMIDE 5 MG TABLET 10 MG PO (23:51)
[2025-08-08] MEDS: FAMOTIDINE 20 MG TABLET 40 MG PO (23:51)
[2025-08-08 23:55] VITALS: BP 140/89; PULSE 70; RESP 16; TEMP 36.9; O2SAT 98
[2025-08-09 08:12] LABS: BVAG Candida Positive (Negative); Bacterial Vaginosis Markers Negative (Negative); Candida glabrata Negative (Negative); Candida krusei PCR Negative (Negative); Trichomonas Negative (Negative)
== END 2025-08-08 23:58 | disposition home or self-care (01) ==
PROVIDERS: Nurse Practitioner Family; Emergency Provider Emergency Medicine
DX: N76.0 Acute vaginitis (principal); B96.89 Other specified bacterial agents as the cause of diseases classified elsewhere; R11.2 Nausea with vomiting, unspecified
CPT/HCPCS: 36415; 76856; 80053; 81001; 81025; 81514; 85025; 87210; 99283; J7120; Q0162; A9270